=== PATIENT | male | born 1970 | race Caucasian/White ===

== ENCOUNTER 2018-10-31 11:50 | Inpatient (IN) | payer MEDICAID ==
[~2018-10-31] VITALS: Ht 175.3 cm; Wt 115.7 kg
--- NOTE | 2018-10-31 11:50 | NUR ---
PT TO ER BED 11
[2018-10-31 12:00] VITALS: BP 141/97
--- NOTE | 2018-10-31 12:03 | NUR ---
Pt. BIB self with c/o epigastric pain radiating to the back with vomiting 20 mins cloth bleaching range back tender. Per pt he was dx with pancreatitis with similar s/s 8 months ago; took xantac with no relief. PT APPEARS DIAPHORETIC AND SKIN WARM TO TOUCH. TACHYPNEIC, PT. STATES " I FEEL NAUSEOUS". PT DENIES ANY CHEST PAIN AT THIS TIME. DENIES ANY V/D. PT. ABLE TO SPEAK IN FULL AND COMPLETE SENTENCES. ER MD MADE AWARE OF PATIENT STATUS. SAFETY PRECAUTIONS IN PLACE BS: [id number] REPORTED TO ER MD GALLOWAY. WILL CONTINUE TO MONITOR.
[2018-10-31] MEDS ORDERED: NACL 0.9% 1,000 ML IV ONE (12:10)
[2018-10-31] MEDS ORDERED: ONDANSETRON 4 MG/2 ML VIAL IVP ONE (12:10)
[2018-10-31] MEDS ORDERED: MORPHINE SULFATE 4 MG/ML SYR IVP ONE (12:10)
[2018-10-31] MEDS ORDERED: INSULIN REGULAR, HUMAN 100 UNIT/ML VIAL IVP ONE (12:15)
--- NOTE | 2018-10-31 12:35 | NUR ---
LAB AT BEDSIDE AT THIS TIME.
[2018-10-31 12:43] LABS: BASOPHILS % (AUTO) 0.4 % (0.0-2.0); EOSINOPHILS # (AUTO) 0.2 K/uL (0-0.4); EOSINOPHILS % (AUTO) 2.6 % (0.0-4.0); HEMATOCRIT 46.2 % (36-52); HEMOGLOBIN 15.5 g/dL (12.0-18.0); LYMPHOCYTES # (AUTO) 2.1 K/uL (2.0-11.5); MEAN CORPUSCULAR HEMOGLOBIN 28 pg (27-31); MEAN CORPUSCULAR HGB CONC 34 g/dL (33-37); MEAN CORPUSCULAR VOLUME 82.6 fL (80-94); MONOCYTES # (AUTO) 0.2 K/uL (0.8-1.0); MONOCYTES % (AUTO) 2.7 % (1.7-9.3); NEUTROPHILS # (AUTO) 3.8 K/uL (1.8-7.7); NEUTROPHILS % (AUTO) 61.3 % (42.2-75.2); PLATELET COUNT (AUTO) 179 K/uL (140-450); RED BLOOD CELL COUNT(AUTO) 5.59 MIL/uL (4.20-6.10); RED CELL DISTRIBUTION WIDTH 13.6 % (11.6-13.7); WHITE BLOOD COUNT (AUTO) 6.3 K/uL (4.8-10.8)
--- NOTE | 2018-10-31 12:51 | NUR ---
PT. TAKEN TO CT SCAN VIA WHEELCHAIR
[2018-10-31 12:57] LABS: ANION GAP 10.1 (8-16); CARBON DIOXIDE 26.1 mmol/L (21-32); CREATININE 0.9 mg/dL (0.7-1.3); POTASSIUM 3.2 mmol/L (3.5-5.1)
[2018-10-31 13:02] LABS: PROTHROMBIN TIME 10.2 secs (10.8-13.4)
[2018-10-31 13:03] LABS: ALBUMIN 3.1 g/dL (3.4-5.0); TOTAL BILIRUBIN 0.4 mg/dL (0.0-1.0)
--- NOTE | 2018-10-31 13:04 | NUR ---
PT. BACK FROM CT SCAN , VSS. RR EVEN AND UNLABORED. WILL CONTINUE TO MONITOR.
[2018-10-31] MEDS ORDERED: POTASSIUM CHLORIDE 20% 40 MEQ/15 ML UDC PO ONE (13:30)
[2018-10-31] MEDS ORDERED: METF500T PO (13:33)
[2018-10-31] MEDS ORDERED: ONDANSETRON 4 MG/2 ML VIAL IVP PRN (13:45)
[2018-10-31] MEDS ORDERED: ACETAMINOPHEN 325 MG TAB PO PRN (13:45)
[2018-10-31 13:46] LABS: APPEARANCE,URINE HAZY (CLEAR); BILIRUBIN,URINE NEGATIVE (NEGATIVE); BLOOD, URINE TRACE-L (NEGATIVE); COLOR,URINE YELLOW (YELLOW); LEUKOCYTE ESTERASE ,URINE NEGATIVE (NEGATIVE); NITRITE, URINE NEGATIVE (NEGATIVE); UGLUCOSE 3+ (NEGATIVE)
[2018-10-31 13:49] LABS: RBC,URINE 0-5 (RARE) /HPF (0-5); WBC,URINE 0-5 (RARE) /HPF (0-5)
[2018-10-31] MEDS ORDERED: MORPHINE SULFATE 4 MG/ML SYR IM PRN (13:55)
--- NOTE | 2018-10-31 13:55 | NUR ---
PATIENT IS ADMITTED, BUT MST WILL NEED TO CALL ON-CALL NURSE. WILL F/U.
[2018-10-31] MEDS ORDERED: DEXTROSE 50% 50 ML SYR IVP PRN (14:40)
[2018-10-31 14:47] LABS: BARBITURATE, URINE NEG. ng/ml (NEG <=200); BENZODIAZEPINE, URINE NEG. ng/mL (NEG <=200); CANNABINOID, URINE NEG. ng/mL (NEG <=50); COCAINE, URINE NEG. ng/mL (NEG <=300); OPIATE, URINE NEG. ng/mL (NEG <=2000); PHENCYCLIDINE SCREEN,URINE NEG. ng/mL (NEG <=25)
--- NOTE | 2018-10-31 15:00 | NUR ---
PATIENT ADMITTED FROM ED. SBAR REPORT RECEIVED FROM RN AT BEDSIDE. C/O ABDOMINAL PAIN X1 DAY. PATIENT DENIES N/V. STATES ABD PAIN 6/10, TOLERABLE. AMBULATORY TO BED. ALERT AND ORIENTED, FOLLOWS COMMANDS. ON ROOM AIR. IV SITE PATENT AND INTACT. ORIENTED PATIENT TO HOSPITAL ENVIRONMENT. CALL LIGHT WITHIN REACH.PATIENT POSITIONED FOR COMFORT.
--- NOTE | 2018-10-31 15:00 | NUR ---
Patient will be admitted to care of DR. SILVESTRE . Admited to TELE . Will go to room 112B. Belongings list completed. Report to MICH MICHEL .
[2018-10-31] MEDS: NACL 0.9% 1,000 ML IV SCH ×3 (15:09→22:11)
[2018-10-31 15:37] VITALS: BP 134/78
[2018-10-31 16:20] LABS: FREE T4 (FREE THYROXINE) 0.97 ng/dL (0.76-1.46); MAGNESIUM 1.6 mg/dL (1.8-2.4); PHOSPHORUS 2.6 mg/dL (2.5-4.9); THYROID STIMULATING HORMONE 0.87 uIU/mL (0.34-3.74)
[2018-10-31] MEDS: BLOOD GLUCOSE MONITORING 1 DEV DEV FS SCH ×2 (16:22→21:06)
--- NOTE | 2018-10-31 16:36 | NUR ---
DR. JOHNSON AWARE OF PATIENT K LEVELS AND GIVEN MEDICATIONS, OKAY TO GIVE ORDERED IVPB POTASSIUM.
[2018-10-31] MEDS: MORPHINE SULFATE 4 MG/ML SYR IV PRN (16:42)
[2018-10-31] MEDS ORDERED: POTASSIUM CHLORIDE 40 MEQ, LIDOCAINE 1% 25 MG in NACL 0.9% 250 ML IV SCH (17:00)
--- NOTE | 2018-10-31 17:50 | NUR ---
PATIENT'S FAMILY AT BEDSIDE. PATIENT SEEN RESTING IN BED, NO ACUTE DISTRESS NOTED. ON ROOM AIR.
[2018-10-31] MEDS ORDERED: INSULIN REGULAR, HUMAN 100 UNIT/ML VIAL SUBQ ONE (18:45)
[2018-10-31] MEDS ORDERED: INSULIN LISPRO 100 UNITS/ML VIAL SUBQ SCH (18:50)
--- NOTE | 2018-10-31 19:29 | NUR ---
RECEIVED REPORT FORM ANAND RN DAYSHIFT NURSE AT BEDSIDE FOR CONTINUITY OF CARE, PTIN STABLE CONDITION.
--- NOTE | 2018-10-31 19:29 | NUR ---
SBAR REPORT GIVEN TO MICH EWING AT PT BEDSIDE. PATIENT SEEN RESTING IN BED, FRIEND AT BEDSIDE, NO ACUTE DISTRESS NOTED.
[2018-10-31 19:52] LABS: CHOL/HDL RATIO 11.8 (1-4.5); HDL CHOLESTEROL 18 mg/dL (40-60); TRIGLYCERIDES 1024 mg/dL (30-150)
[2018-10-31 20:00] VITALS: BP 144/83
--- NOTE | 2018-10-31 20:00 | NUR ---
PT IN BED NO S/S OF PAIN OR DISTRESS NOTED. BED LOW HOB UP 45%. IV SITE ON LEFT HAND INTACT POTASSIUM RUNNING ORDERED. V/S FOLLOWS T 97.5 P 74 R 20 B/P 144/83 02 98% ON R/A.
--- NOTE | 2018-10-31 20:15 | NUR ---
PT BECAME UPSET ABOUT IV SITE CAUSING PAIN. PT SAID THAT HE WAS READY TO CALL 911 IF NO ONE ANSWERED. POTASSIUM CHLORIDE IV WAS STOPPED AT THIS TIME. INFUSION WAS ALMOST COMPLETED. MD MADE AWARE. IV SITE REMAINS INTACT WILL CONTINUE TO MONITOR FOR PAIN IN IV SITE.
[2018-10-31] MEDS ORDERED: INSULIN LISPRO 100 UNITS/ML VIAL SUBQ ONE (21:30)
--- NOTE | 2018-10-31 21:30 | NUR ---
PT DECLINED HEPARIN , RISKS AND BENEFITS EXPLAINED. PT FINGERSTICK IS [id number], DR. BRAN RESIDENT MD ORDERED 6 UNIT OF HUMALOG, WHICH WAS GIVEN TO RESIDENT. WILL CONTINUE TO MONITOR PT BLOOD SUGAR. PT ALSO SAID THAT IS ARM AND IV SITE IS NO LONGER BURNING OR PAIN FELT. SPIKE FROM LAB CALLED MRSA SWAB COLLECTED BUT NO ORDER FOR MRSA SWAB IN COMPUTER. MRSA SWAB WAS ORDERED. Addendum: 10/31/18 at 2238 by Chanda Sexton RN WRONG CHART MRSA SWAB WAS ALREADY ORDERED AND COLLECTED. IV SITE IS 20G ON RIGHT HAND NOT LEFT HAND.
[2018-11-01] VITALS: BP 140/90
--- NOTE | 2018-11-01 | NUR ---
PT SITTING IN BED WITH SIDE RAILS UP X2. F/S RETAKEN AND IS 255. V/S FOLLOWS T 97.4 P 68 R 18 B/P 140/90 02 96% ON R/A. PT SAID HIS PAIN WAS TOLERABLE AND THAT HE DOESN'T WANT TYLENOL OR MORPHINE. PRIMARY NURSE REMINDED PT TO CALL IF PAIN BECOMES INTOLERABLE. PT ON LOW BED WITH CALL WANG IN REACH. WILL CONTINUE TO MONITOR PT FOR PAIN.
[2018-11-01] MEDS: MORPHINE SULFATE 4 MG/ML SYR IV PRN (01:17)
--- NOTE | 2018-11-01 01:33 | NUR ---
PT GIVEN MORPHINE IVP /PRN FOR SEVERE INTERMITTENT PAIN 03/25. WILL CONTINUE TO MONITOR FOR EFFECT. IV SITE ON RH INTACT AND FLUSHED PATENT. PT IS RUNNING N/S AT 200MLS/HR.
[2018-11-01 04:00] VITALS: BP 122/80
--- NOTE | 2018-11-01 04:00 | NUR ---
PT IN BED SLEEPING, BUT AROUSABLE BY NAME V/S FOLLOWS T98.6 P 82 R 18 B/P 122/80 02 94 ON R/A. PT DENIES PAIN. BED LOW CALL WANG IN REACH.
[2018-11-01] MEDS: NACL 0.9% 1,000 ML IV SCH ×3 (05:09→19:31)
--- NOTE | 2018-11-01 06:31 | NUR ---
FINGERSTICK IS 215 PRIMARY ND MADE AWARE, NO NEW ORDERS NOTED AT THIS TIME. MD SAID HE WOULD ADD S/S WHEN PT IS ORDERED A DIET.
--- NOTE | 2018-11-01 07:10 | NUR ---
REPORT GIVEN TO JENS RN DAYSHIFT NURSE AT BEDSIDE FOR CONTINUITY OF CARE, PT IN STABLE CONDITION,
[2018-11-01 07:18] LABS: BASOPHILS % (AUTO) 0.3 % (0.0-2.0); EOSINOPHILS # (AUTO) 0.2 K/uL (0-0.4); HEMATOCRIT 45.7 % (36-52); HEMOGLOBIN 15.1 g/dL (12.0-18.0); LYMPHOCYTES # (AUTO) 2.3 K/uL (2.0-11.5); LYMPHOCYTES % (AUTO) 20.3 % (20.5-51.1); MEAN CORPUSCULAR HEMOGLOBIN 27 pg (27-31); MEAN CORPUSCULAR HGB CONC 33 g/dL (33-37); MEAN CORPUSCULAR VOLUME 82.8 fL (80-94); MONOCYTES # (AUTO) 0.8 K/uL (0.8-1.0); MONOCYTES % (AUTO) 6.8 % (1.7-9.3); NEUTROPHILS # (AUTO) 8.1 K/uL (1.8-7.7); NEUTROPHILS % (AUTO) 70.6 % (42.2-75.2); PLATELET COUNT (AUTO) 175 K/uL (140-450); RED BLOOD CELL COUNT(AUTO) 5.52 MIL/uL (4.20-6.10); RED CELL DISTRIBUTION WIDTH 13.4 % (11.6-13.7); WHITE BLOOD COUNT (AUTO) 11.4 K/uL (4.8-10.8)
--- NOTE | 2018-11-01 07:30 | NUR ---
RECEIVED REPORT FROM SCRIPT ARTIST NURSE AT BEDSIDE FOR CONTINUITY OF CARE. PT IS AAOX4. RESPIRATION EVEN UNLABORED ON ROOM AIR. DENIES PAIN AT THIS TIME. SKIN IS WARM AND DRY. IV TO RIGHT HAND, 20G, PATENT AND INTACT. ALL SAFETY MEASURES IN PLACE. PLAN OF CARE WAS DISCUSSED. BED IS AT LOWEST POSITION LOCKED. CALL LIGHT WITHIN REACH.
[2018-11-01 07:35] LABS: ANION GAP 11.2 (8-16); CARBON DIOXIDE 26.4 mmol/L (21-32); CREATININE 0.7 mg/dL (0.7-1.3); POTASSIUM 3.6 mmol/L (3.5-5.1)
[2018-11-01] MEDS: BLOOD GLUCOSE MONITORING 1 DEV DEV FS SCH ×4 (07:39→21:04)
[2018-11-01 07:49] LABS: MAGNESIUM 1.6 mg/dL (1.8-2.4); PHOSPHORUS 3.5 mg/dL (2.5-4.9)
[2018-11-01 08:00] VITALS: BP 138/92
[2018-11-01] MEDS: PANTOPRAZOLE 40 MG INJ VIAL IVP SCH (08:23)
--- NOTE | 2018-11-01 08:41 | NUR ---
PATIENT HAS BEEN SCREENED AND CATEGORIZED MODERATE NUTRITION RISK. PATIENT WILL BE SEEN WITHIN 3-5 DAYS OF ADMISSION. 11/02/18-11/04/[address]
[2018-11-01] MEDS ORDERED: MAGNESIUM OXIDE 400 MG TAB PO SCH (09:55)
[2018-11-01 10:08] LABS: CHOL/HDL RATIO 7.5 (1-4.5)
[2018-11-01] MEDS ORDERED: DEXTROSE 50% 50 ML SYR IVP PRN (10:10)
[2018-11-01 12:00] VITALS: BP 116/70
[2018-11-01] MEDS: INSULIN LISPRO SLIDING SCALE 100 UNITS/ML VIAL SUBQ PRN ×3 (12:22→21:05)
--- NOTE | 2018-11-01 13:05 | NUR ---
PT TOLERATED LUNCH, DENIES PAIN, N/V.
--- NOTE | 2018-11-01 13:30 | NUR ---
TOOK PT TO SHOWER. NO S/S OF DISTRESS NOTED. IV CATH WAS COVERED DURING SHOWER. IV STILL PATENT AND INTACT AFTER THE SHOWER.
[2018-11-01 16:00] VITALS: BP 126/86
--- NOTE | 2018-11-01 19:35 | NUR ---
ENDORSED PT TO BRAIDER OPERATOR RN. PT IN STABLE CONDITION.
[2018-11-01 20:00] VITALS: BP 128/82
--- NOTE | 2018-11-01 20:00 | NUR ---
PT AOX4 IN LOW BED WITH SIDE RAILS UP X2. PT V/S FOLLOWS T 98.4 P 81 R 18 B/P 128/82 02 95% ON R/A. PT DENIES PAIN. PT FINGERSTICK IS 181. WILL PROVIDE 2 UNITS OF HUMALOG COVERAGE. PT REQUEST UP DATE REGARDING HIS DISCHARGE. WILL SPEAK WITH DR. TAMAYO REGARDING PT CURRENT PLAN FOR DISCHARGE.
--- NOTE | 2018-11-01 21:00 | NUR ---
PT GIVEN 2 UNITS OF HUMALOG COVERAGE. SPOKE WITH BELKIS LORENZO REGARDING PT PLAN OF ACTION. SHE CONFIRMED THAT PT HAS A PENDING CONSULT WITH DR. VILLATORO AND LAB WORK ORDERED FOR THE AM. DR. TAMAYO SAID THAT PT WBC COUNT WAS STILL ELEVATED AND THEY WANT TO RECHECK IT IN THE MORNING BUT MOST LIKELY BE DISCHARGED IN THE AM. PT UPDATED.
--- NOTE | 2018-11-01 22:10 | NUR ---
PT REQUESTED TO BE TRANSFERRED TO ANOTHER ROOM DUE TO FEELING UNCOMFORTABLE WITH ROOMMATE AND VISITOR. PT TRANSFERRED TO ROOM 105B WITH ALL HIS BELONGINGS AT BEDSIDE.
[2018-11-02] VITALS: BP 137/83
--- NOTE | 2018-11-02 | NUR ---
PT SLEEPING SOUNDLY NO S/S OF PAIN OR DISTRESS. PT AROUSABLE TO NAME AND LIGHT TOUCH. V/S FOLLOWS T 98.0 P 83 R 18 B/P 137/83 02 92% ON R/A.
[2018-11-02 04:00] VITALS: BP 123/58
--- NOTE | 2018-11-02 04:00 | NUR ---
PT IN BED SLEEPING NO S/S OF PAIN OR DISTRESS NOTED V/S STABLE, BED LOW AND CALL WANG IN REACH.
[2018-11-02] MEDS: NACL 0.9% 1,000 ML IV SCH (05:24)
[2018-11-02] MEDS: BLOOD GLUCOSE MONITORING 1 DEV DEV FS SCH (05:53)
[2018-11-02] MEDS: INSULIN LISPRO SLIDING SCALE 100 UNITS/ML VIAL SUBQ PRN (06:06)
[2018-11-02 07:19] LABS: BASOPHILS % (AUTO) 0.5 % (0.0-2.0); EOSINOPHILS # (AUTO) 0.4 K/uL (0-0.4); EOSINOPHILS % (AUTO) 3.6 % (0.0-4.0); HEMATOCRIT 45.8 % (36-52); HEMOGLOBIN 15.1 g/dL (12.0-18.0); MEAN CORPUSCULAR HEMOGLOBIN 28 pg (27-31); MEAN CORPUSCULAR HGB CONC 33 g/dL (33-37); MEAN CORPUSCULAR VOLUME 83.3 fL (80-94); MONOCYTES # (AUTO) 0.7 K/uL (0.8-1.0); MONOCYTES % (AUTO) 6.9 % (1.7-9.3); NEUTROPHILS # (AUTO) 6.6 K/uL (1.8-7.7); PLATELET COUNT (AUTO) 177 K/uL (140-450); RED CELL DISTRIBUTION WIDTH 13.7 % (11.6-13.7); WHITE BLOOD COUNT (AUTO) 10.8 K/uL (4.8-10.8)
[2018-11-02 07:28] LABS: ANION GAP 9.9 (8-16); CARBON DIOXIDE 26.5 mmol/L (21-32); CREATININE 0.7 mg/dL (0.7-1.3); POTASSIUM 3.4 mmol/L (3.5-5.1)
--- NOTE | 2018-11-02 07:30 | NUR ---
REPORT GIVEN TO RAMONE AT BEDSIDE FOR CONTINUITY OF CARE, PT IN STABLE CONDITION.
--- NOTE | 2018-11-02 07:31 | NUR ---
RECEIVED REPORT FROM [facility] NURSE. PATIENT LYING DOWN IN BED ON HIS PHONE. NO DISTRESS NOTED. DENIES ANY PAIN. DENIES ANY NAUSEA/VOMITING OVERNIGHT. AAOX4, CALM, COOPERATIVE, SKIN COLOR APPROPRIATE TO ETHNICITY, WARM TO TOUCH. SKIN INTACT. RESPIRATIONS EVEN, UNLABORED, ON ROOM AIR. ABDOMEN SOFT. IV SITE INTACT, PATENT, AND INFUSING IVF PER MD ORDERS. REVIEWED PLAN OF CARE WITH PATIENT. PATIENT VERBALIZED UNDERSTANDING. SAFETY MEASURES IN PLACE, CALL LIGHT WITHIN REACH. WILL CONTINUE TO MONITOR.
[2018-11-02 07:39] LABS: MAGNESIUM 1.8 mg/dL (1.8-2.4); PHOSPHORUS 3.1 mg/dL (2.5-4.9)
[2018-11-02 08:00] VITALS: BP 130/86
--- NOTE | 2018-11-02 08:25 | NUR ---
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 DOES NOT WANT TO STAY AT HOSPITAL AND WAIT FOR GI CONSULT DUE TO PANCREATITIS. MD NOTIFIED. MD AT BEDSIDE EXPLAINING RISKS ASSOCIATED WITH LEAVING AMA. PATIENT WISHES TO LEAVE AMA DESPITE RISKS EXPLAINED BY MD. AWAITING FOR MD TO WRITE PRESCRIPTIONS FOR PATIENT BEFORE LEAVING AMA. WILL CONTINUE TO MONITOR.
[2018-11-02] MEDS ORDERED: metFORMIN 500 MG TAB PO SCH (09:00)
[2018-11-02] MEDS: PANTOPRAZOLE 40 MG INJ VIAL IVP SCH (09:01)
--- NOTE | 2018-11-02 09:07 | NUR ---
PATIENT SITTING IN BED WATCHING TV. COMPLAINS OF A MILD HEADACHE, TYLENOL GIVEN. OTHER SCHEDULED MEDICATIONS DUE GIVEN. WILL CONTINUE TO MONITOR.
--- NOTE | 2018-11-02 09:25 | NUR ---
PATIENT SITTING IN BED. AMA PAPERS ALREADY SIGNED. PATIENT ALREADY DRESSED. ID BANDS REMOVED. ESCORTED PATIENT DOWN TO LOBBY VIA STEADY AMBULATION. PATIENT LEFT AMA AT THIS TIME IN STABLE CONDITION.
== END 2018-11-02 09:25 | disposition left against medical advice (07) | DRG 282 ==
LOC: MED 11:50 → MTU 13:42
PROVIDERS: ADMIT General Practice; ATTEND General Practice
DX: K85.90 Acute pancreatitis without necrosis or infection, unspecified (principal); R65.10 Systemic inflammatory response syndrome (SIRS) of non-infectious origin without acute organ dysfunction; E44.0 Moderate protein-calorie malnutrition; E11.65 Type 2 diabetes mellitus with hyperglycemia; K76.0 Fatty (change of) liver, not elsewhere classified; Z90.49 Acquired absence of other specified parts of digestive tract; K86.1 Other chronic pancreatitis; E87.1 Hypo-osmolality and hyponatremia; E87.6 Hypokalemia; E66.9 Obesity, unspecified; Z68.37 Body mass index [BMI] 37.0-37.9, adult; J98.11 Atelectasis; Z53.21 Procedure and treatment not carried out due to patient leaving prior to being seen by health care provider
CPT/HCPCS: 36415; 36600; 71045; 76705; 80048; 80053; 80305; 81001; 82140; 82150; 82803; 82948; 83036; 83605; 83615; 83690; 83735; 83880; 84100; 84439; 84443; 84484; 85025; 85610; 85730; 87081; 93005; 96361; 96374; 96375; 99285; C9113; G0482; J1644; J1815; J2001; J2270; J2405; J3480; J7030; Q0092